=== PATIENT | female | born 1980 | race Hispanic/Latino ===

== ENCOUNTER 2020-07-06 07:02 | Day surgery (SDC) | payer OTHER ==
[~2020-07-06] VITALS: Ht 165.1 cm; Wt 139.7 kg
[2020-07-06] VITALS (7 sets, daily range): BP systolic 92–145; BP diastolic 63–86
[~2020-07-06 07:02] MED LIST: HYDR12.54 PO; METO-409 PO
[2020-07-06] MEDS ORDERED: SODIUM CHLORIDE 0.9% 1000ML 1,000 ML IV ONE (07:17)
[2020-07-06] MEDS ORDERED: PROPOFOL 10 MG/ML 20ML VIAL IV ONE (07:34)
[2020-07-06] MEDS ORDERED: LIDOCAINE HCL-MPF 2% 5ML VIAL ONE (07:34)
== END 2020-07-06 09:05 | disposition home or self-care (01) ==
LOC: ENDO 07:02 → DAH 07:02 → ENDO 09:05
PROVIDERS: ATTEND Surgery
DX: K21.9 Gastro-esophageal reflux disease without esophagitis (principal); Z20.822 Contact with and (suspected) exposure to COVID-19; I10 Essential (primary) hypertension; E66.9 Obesity, unspecified; Z98.84 Bariatric surgery status
CPT/HCPCS: 43235; A4215 ×2; A4221; A4222; A4223; A4606; A4620; A4663; C9803; J2704; J3490; J7030; U0003